=== PATIENT | female | born 1960 ===

== ENCOUNTER 2024-06-14 12:19 | Emergency (ER) | payer OTHER, SELFPAY ==
[2024-06-14 12:28] VITALS: BP 154/71
[2024-06-14] MEDS: ANCEF 10 IV (14:05)
[2024-06-14] MEDS: TORADOL 30 MG IV (14:05)
--- NOTE | 2024-06-14 14:05 | ED.GENMED ---
History of Present Illness
General
Chief Complaint: Skin Problem
Source: patient
Exam Limitations: none
Time Seen by Provider: 06/14/24 13:41
Nursing documentation reviewed up to this point in time: agreed with
History of Present Illness
History of Present Illness:
64-year-old female right hand pain and swelling for a day or 2 had some chills no fever no falls no insect bite, not diabetic does have RA scheduled to have Remicade today, she apparently called her occupational health manager Dr. Erickson to cancel already
No other joints are involved, states she typically gets multiple joints involved when she has an RA flare not currently on steroids she weaned off a few months ago
Past History
Past History
ED Past Medical History: HTN and Other (Rheumatoid arthritis)
Social History
Tobacco: Non-smoker
Alcohol: Occasional
Drug: None
Personal:
Living: with family
Employment: Employed
Review of Systems
Review of Systems
All Other Systems: Not applicable
Constitutional: Reports fatigue and chills; Denies fever
EENT: Reports no symptoms
Respiratory: Reports no symptoms
Cardiac: Reports no symptoms
ABD/GI: Reports no symptoms
: Reports no symptoms
Phy Exam
Physical Exam
Physical Exam:
Physical Exam
General: no apparent distress, not acutely ill
Neck: No jaundice
Heart: s1/s2 regular rate and rhythm, no murmur. equal radial pulses.
Lungs: no acute respiratory distress. clear bilaterally
Abdomen: Nontender
Neuro: alert and oriented. no focal neurological deficits
Skin: no rash
Psychiatric: well kept. interactive and cooperative
Extremities: Right hand dorsum warm swollen pain with flexion of the wrist and finger no crepitance no skin breakdown
Course
Orders/Labs/Results
Orders:
Orders
06/14/24 13:58
Add On- LAB Urgent
Tests Added?: esr/crp
06/14/24 14:00
CeFAZolin 2 GRAM [Ancef] 2 grams in 10 ml IV NOW
Ketorolac [Toradol] 30 mg IV NOW STA
06/14/24 14:04
C-Reactive Protein Urgent
CBC/With Diff [Complete Blood Count/With Diff] Urgent
CMP [Comprehensive Metabolic Panel] Urgent
Erythrocyte Sed Rate Urgent
Abnormal Lab Results
06/14/24
14:04
WBC 17.5 H 10^3/uL
(4.8-10.8)
MCHC 31.3 L g/dL
(33.0-37.0)
Abs Immat Gran (auto) 0.1 H 10^3/uL
(0-0.05)
Absolute Neuts (auto) 14.3 H 10^3/uL
(1.4-6.5)
Absolute Monos (auto) 1.4 H 10^3/uL
(0.1-0.6)
Immature Gran % 0.6 H %
(0-0.5)
Neutrophils % 81.8 H %
(42.2-75.2)
Lymphocytes % 8.6 L %
(20.5-51.1)
ESR 70 H mm/hour
(0-20)
BUN 19 H mg/dl
(7-17)
06/14/24 14:04
06/14/24 14:04
Vital Signs
Initial and Last Documented VS:
Initial Vital Signs
Temp Pulse Resp BP Pulse Ox
97.1 F 58 18 154/71 98
06/14/24 12:28 06/14/24 12:28 06/14/24 12:28 06/14/24 12:28 06/14/24 12:28
Last Documented Vital Signs
Temp Pulse Resp BP Pulse Ox
97.1 F 58 15 154/71 98
06/14/24 12:28 06/14/24 12:28 06/14/24 14:12 06/14/24 12:28 06/14/24 12:28
MDM/Problems Addressed
Differential Diagnosis Includes:
Cellulitis rheumatoid flare arthropathy
MDM/Problems Addressed:
Hand swelling
Chronic conditions affecting care:
RA
Acute Exacerbation and/or Progression of Chronic Illness:
RA
*Pulse Oximetry
Patient hypoxic: no
*Critical Care Note
Total Time (30-74mins, 75-104mins- exclusive of procedures): Not Applicable
Update Note
Update Note:
Update not entirely clear if this is infectious versus inflammatory does have a history of RA does appear to involve the whole hand not just the wrist, streak up into the forearm a bit, nonpurulent, will start on antibiotics I did consider starting
with steroids tube that may muddy the water I did send a message to her occupational health manager as well
Update labs are noted inflammatory markers are up as is her white count
ED Attending Note
-
Portions of this chart may have been created with voice recognition software.� Occasional wrong word or��sound alike� substitutions may have occurred due to the inherent limitations of voice recognition software.
Discharge Plan
Departure
Patient Disposition: Home (Routine Discharge)
Date of Disposition: 06/14/24
Time of Disposition: 15:05
Patient with high blood pressure during this ER visit?: No
Condition: Good
Discharge Problem:
Cellulitis
Instructions: Cellulitis (Skin Infection), Adult (DC)
Prescriptions:
New
cephalexin 500 mg capsule
500 mg PO Q6H 10 Days Qty: 40 0RF
Referrals:
Sharlene Erickson MD [Active] - Next open appointment
Activity Restrictions/Additional Instructions:
Antibiotics as prescribed Tylenol or ibuprofen for pain or fever return to the ER if worsening symptoms follow-up with your family doctor and/or rheumatology
Interventions
Interventions:
*Risk Screen - Suicide Last Done: 06/14/24 12:28
*General Assessment Last Done: 06/14/24 12:28
*Neglect/Abuse Screening Last Done: 06/14/24 12:28
ED- Fall Risk Assessment Last Done: 06/14/24 14:12
Discharge Date and Time
Print Language: CROATIAN
[2024-06-14 14:12] VITALS: BMI 33.1
[2024-06-14 14:16] LABS: % Basophils 0.4 % (0-2); % Eosinophils 0.4 % (0-6); % Immature Granulocytes 0.6 % (0-0.5); % Lymphocytes 8.6 % (20.5-51.1); % Monocytes 8.2 % (1.7-9.3); % Neutrophils 81.8 % (42.2-75.2); Absolute Basophils 0.1 10^3/uL (0-0.2); Absolute Eosinophils 0.1 10^3/uL (0-0.7); Absolute Immature Granulocytes 0.1 10^3/uL (0-0.05); Absolute Lymphocytes 1.5 10^3/uL (1.2-3.4); Absolute Monocytes 1.4 10^3/uL (0.1-0.6); Absolute Neutrophils 14.3 10^3/uL (1.4-6.5); Hematocrit 44.1 % (37.0-47.0); Hemoglobin 13.8 g/dL (12.0-16.0); Mean Corp Hgb Conc. 31.3 g/dL (33.0-37.0); Mean Corpuscular Hgb 27.7 pg (27.0-31.0); Mean Corpuscular Volume 88.4 fL (81.0-99.0); Mean Platelet Volume 9.8 fL (7.4-10.4); Nucleated Red Blood Cells % 0 %; Platelet Count 329 10^3/uL (130-400); Red Blood Cell Count 4.99 10^6/uL (4.20-5.40); Red Cell Dist. Width 14.2 % (11.5-14.5); White Blood Cell Count 17.5 10^3/uL (4.8-10.8)
[2024-06-14 14:29] LABS: ALT (SGPT) 34 U/L (0-35); AST (SGOT) 31 U/L (14-36); Albumin 4.9 g/dl (3.5-5.0); Alkaline Phosphatase 96 U/L (38-126); Blood Urea Nitrogen 19 mg/dl (7-17); Calcium 9.8 mg/dl (8.4-10.2); Carbon Dioxide 30 mmol/L (22-30); Chloride 101 mmol/L (98-107); Estimated Creatinine Clearance 59 ml/min; Glucose 82 mg/dl (70-99); Potassium 4.4 mmol/L (3.5-5.1); Sodium 137 mmol/L (135-145); Total Bilirubin 0.5 mg/dl (0.2-1.3); Total Protein 7.9 g/dl (6.3-8.2); eGFR > 60.00
[2024-06-14 14:47] LABS: Erythrocyte Sed Rate 70 mm/hour (0-20)
[2024-06-14 15:13] VITALS: BP 150/74
== END 2024-06-14 15:38 | disposition home or self-care (01) ==
LOC: EMR 12:19
PROVIDERS: EMERGENCY PHYSICIAN Emergency Medicine; FAMILY PHYSICIAN Internal Medicine
DX: L03.113 Cellulitis of right upper limb (principal); M06.9 Rheumatoid arthritis, unspecified; I10 Essential (primary) hypertension
CPT/HCPCS: 96374; 96375; 99284; 80053; 85025; 85652; 86140